=== PATIENT | female | born 1985 | race Caucasian/White ===

== ENCOUNTER 2022-07-08 10:30 | Outpatient (RCR) | payer OTHER, BC, SELFPAY ==
[2022-07-07 08:16] VITALS: BMI 30.1
== END 2022-07-14 12:30 | disposition home or self-care (01) ==
LOC: ANHDMC 10:30
PROVIDERS: Visit Provider Obstetrics & Gynecology
DX: O24.319 Unspecified pre-existing diabetes mellitus in pregnancy, unspecified trimester (principal); Z3A.00 Weeks of gestation of pregnancy not specified; Z71.3 Dietary counseling and surveillance; Z71.89 Other specified counseling
CPT/HCPCS: 97802; G0108

== ENCOUNTER 2022-09-10 21:29 | Observation (INO) | payer OTHER, BC, SELFPAY ==
[2022-09-10 23:08] VITALS: BMI 28.5
--- NOTE | 2022-09-10 23:08 | OBADM ---
This patient, Brenda Jason, admitted to the OB room Labor/Delivery/Recovery 106 for observation. Patient/family oriented to hospital policies and general routines including ID bracelet, bed and alarms, visiting hours, pain management, procedures, bathroom and other care routines, personal items, smoking policy, room service/diet, and visiting hours. Patient/Family are encouraged to report perceived risks to care and to ask questions if they do not understand what they are told or what they should do.
--- NOTE | 2022-09-15 21:47 | PM.OBTRLD ---
OB - Triage/Final Diagnosis Visit Information Reason for evaluation: threatened labor Comments/Additional reasons for admission: I have assessed the risk for this patient, Brenda Jaz Jason, and determined that she would benefit from observation care.
== END 2022-09-10 23:25 | disposition home or self-care (01) ==
PROVIDERS: Admitting Provider Obstetrics & Gynecology; Visit Provider Obstetrics & Gynecology
DX: O47.1 False labor at or after 37 completed weeks of gestation (principal); Z3A.39 39 weeks gestation of pregnancy
CPT/HCPCS: G0378; G0379

== ENCOUNTER 2022-09-11 14:33 | Inpatient (IN) | payer OTHER, BC, SELFPAY ==
[2022-09-11] VITALS (104 sets, daily range): BP systolic 104–150; BP diastolic 49–88; PULSE 64–117; RESP 16–18; TEMP 37.2–37.6; O2SAT 95–100; BMI 28.7
[2022-09-11 15:40] LABS: Glucose Point of Care 86 mg/dl (65-105)
--- NOTE | 2022-09-11 15:52 | LDADM ---
This patient, Brenda Jason, was admitted to Labor/Delivery/Recovery 106 on 09/11/22 at 14:33. Plans for labor, pain management and were discussed with patient. Patient/family oriented to hospital policies and general routines including ID bracelet, bed and alarms, visiting hours, pain management, procedures, bathroom and other care routines, personal items, smoking policy, room service/diet and guest tray routines, infant security routines, and visiting hours. Patient/Family are encouraged to report perceived risks to care and to ask questions if they do not understand what they are told or what they should do. See OBIX for further documentation.
[2022-09-11 15:58] LABS: Basophils Percent Auto 0.2 % (0.2-1.2); Hematocrit 35.8 % (37.0-47.0); Hemoglobin 11.2 g/dL (12.0-15.0); Immature Granulocyte Absolute 0.04 K/mm3 (0.00-0.031); Immature Granulocyte Percent A 0.3 % (0-0.5); Immature Platelet Fraction Pct 17.1 % (0.9-11.2); Lymphocytes Absolute Auto 1.93 K/mm3 (0.9-3.2); Lymphocytes Percent Auto 15.5 % (18.3-44.2); Mean Corpuscular HGB Conc 31.3 g/dl (32-36); Mean Corpuscular Hemoglobin 23.9 pg (26-34); Mean Corpuscular Volume 76.5 fl (80-100); Monocytes Percent Auto 7.7 % (2.6-8.5); Neutrophils Absolute Auto 9.5 K/mm3 (1.3-6.7); Neutrophils Percent Auto 76.3 % (45.5-73.1); Platelet Count Result 263 k/mm3 (150-375); Red Blood Count 4.68 M/mm3 (4.2-5.4); Red Cell Distribution Width 17.5 % (11.5-14.5); White Blood Count 12.5 K/mm3 (4.5-10.0)
--- NOTE | 2022-09-11 17:11 | PM.IMHP ---
H&P: HPI History of Present Illness Date/Time: 09/11/22 17:11 Chief Complaint: labor at term Narrative: this is a 37-year-old 1 para 0 whose last menstrual period was 12/07/2021, whose EDC is 09/14/2022 confirmed by IVF who presents with ruptured membranes at 39+ weeks gestation. Her has been complicated by gestational diabetes with an abnormal 1hour 2/4 abnormal 1hour 3hour. She states however her sugars have been well controlled by diet along. The fluid is apparently somewhat meconium stained. But she is negative for group B strep PMFSH Family History Family History Grandparent Cerebrovascular accident Social History Social History Smoking status: Never smoker Substance use: never Lack of Transportation: No Lack of Food: Never True Current Housing: I Have Housing Concerned About Future Housing: No Difficulty Paying Gas/Electric Bills: No Difficulty Paying for Meds: No Currently Unemployed: No Education: Bachelor's Degree Difficulty w/ Childcare or Family Care: No Spiritual care concerns: No Meds Home Medications and Allergies Home Medications Medication Instructions Recorded Confirmed Type aspirin 81 mg tablet 81 mg PO DAILY 07/22/22 09/11/22 History vits no.126-ferrous fum 1 tablet PO DAILY 07/22/22 09/11/22 History 28 mg iron-folic acid 800 mcg tablet (Classic ) cholecalciferol (vitamin D3) 100 100 mcg PO DAILY 08/16/22 08/16/22 History mcg (4,000 unit) tablet Allergies Allergy/AdvReac Type Severity Reaction Status Date / Time No Known Allergies Allergy Verified 07/22/22 12:26 Vital Signs Vital Signs - 24 hr 09/11/22 15:15 09/11/22 13:30 09/11/22 15:30 Temperature 99.4 F 99.4 F Pulse Rate 89 Blood Pressure 123/88 Oxygen Delivery 09/11/22 16:51 09/11/22 15:48 Temperature Pulse Rate 83 Blood Pressure 130/76 Oxygen Delivery Room Air Exam Const: General: cooperative, healthy appearing and comfortable Nutritional Appearance: average body habitus Orientation/consciousness: oriented to person, oriented to place and oriented to time HENMT: Head: normal to inspection Resp: Effort & Inspection: normal respiratory effort Cardio: Rate: regular rate Rhythm: regular rhythm Heart sounds: S1 normal heart sound present and S2 normal heart sound present GI: Inspection: normal to inspection ( gravid uterus) : External Female Exam: normal external appearance Speculum Exam - Vagina: normal appearance of the vagina Speculum Exam - Cervix: normal appearance of the cervix ( cervix 3.5cm. Meconium-stained fluid seen. FHTs reassuring.) H&P: Results Labs Labs: Short CBC 09/11/22 Range/Units 15:33 WBC 12.5 H (4.5-10.0) K/mm3 Hgb 11.2 L (12.0-15.0) g/dL Hct 35.8 L (37.0-47.0) % Plt Count 263 (150-375) k/mm3 Assessment and Plan Assessment and plan (1) Term : Code(s): Z34.90 - Encounter for supervision of normal , unspecified, unspecified trimester Status: Acute (2) Spontaneous rupture of membranes: Status: Acute Plan spontaneous vaginal delivery is anticipated. She is an epidural candidate. Her sugars have remained normal here
[2022-09-11] MEDS: LACTATED RINGERS 1,000 ML 125 ML IV CONT (18:09)
--- NOTE | 2022-09-11 18:42 | WPDANESEPP ---
Anes - Eval Pre Procedure Procedure: Labor epidural Date/Time: 09/11/22 18:42 Surgeon: Lucio Hugo Preop Diagnosis: Abdominal pain with contractions Pre Op Diagnosis: Leaking Patient Data Age: 37 Gender: F Height: 1.6 m Weight: 73.5 kg Last Vital Signs Temp 99.6 F 09/11/22 17:00 Pulse 73 09/11/22 18:30 BP 131/88 09/11/22 18:30 O2 Del Method Room Air 09/11/22 15:48 Allergies Allergy/AdvReac Type Severity Reaction Status Date / Time No Known Allergies Allergy Verified 07/22/22 12:26 Home Medications Medication Instructions Recorded Confirmed Type aspirin 81 mg tablet 81 mg PO DAILY 07/22/22 09/11/22 History vits no.126-ferrous fum 1 tablet PO DAILY 07/22/22 09/11/22 History 28 mg iron-folic acid 800 mcg tablet (Classic ) cholecalciferol (vitamin D3) 100 100 mcg PO DAILY 08/16/22 08/16/22 History mcg (4,000 unit) tablet Laboratory Tests 09/11/22 09/11/22 15:32 15:33 WBC 12.5 H K/mm3 (4.5-10.0) RBC 4.68 M/mm3 (4.2-5.4) Hgb 11.2 L g/dL (12.0-15.0) Hct 35.8 L % (37.0-47.0) MCV 76.5 L fl (80-100) MCH 23.9 L pg (26-34) MCHC 31.3 L g/dl (32-36) RDW 17.5 H % (11.5-14.5) Plt Count 263 k/mm3 (150-375) MPV TNP Immature Gran % (Auto) 0.3 % (0-0.5) Neut % (Auto) 76.3 H % (45.5-73.1) Lymph % (Auto) 15.5 L % (18.3-44.2) [place] % (Auto) 7.7 % (2.6-8.5) Eos % (Auto) 0.0 % (0-4.4) Baso % (Auto) 0.2 % (0.2-1.2) Lymph # (Auto) 1.93 K/mm3 (0.9-3.2) [place] # (Auto) 1.0 H K/mm3 (0.1-0.6) Eos # (Auto) 0.0 K/mm3 (0-0.3) Baso # (Auto) 0.0 K/mm3 (0.0-0.1) Abs Immat Gran (auto) 0.04 H K/mm3 (0.00-0.031) Absolute Neuts (auto) 9.5 H K/mm3 (1.3-6.7) Absolute Nucleated RBC 0.0 K/mm3 (0.0-0.012) Nucleated RBC % 0.0 % (0.0-0.2) % Immature Plt Fraction 17.1 H % (0.9-11.2) POC Capillary Glucose 86 mg/dl (65-105) RPR Pending Blood Type A Positive Antibody Screen Negative : gestational age HCG: positive Patient hx anesthesia problems: none Family hx anesthesia problems: none Results Review: All pre-operative results and documents have been reviewed as part of the pre-operative evaluation. [facility] Past Medical History Medical History Gestational diabetes Overweight (BMI 25.0-29.9) Term Family History Family History Grandparent Cerebrovascular accident Social History Social History Smoking status: Never smoker Substance use: never Lack of Transportation: No Lack of Food: Never True Current Housing: I Have Housing Concerned About Future Housing: No Difficulty Paying Gas/Electric Bills: No Difficulty Paying for Meds: No Currently Unemployed: No Education: Bachelor's Degree Difficulty w/ Childcare or Family Care: No Spiritual care concerns: No Exam Day of Procedure 09/11/22 18:42 Patient weight: overweight Airway: Mallampati scale class II
[2022-09-11 19:15] LABS: Glucose Point of Care 98 mg/dl (65-105)
[2022-09-11 21:59] LABS: Glucose Point of Care 84 mg/dl (65-105)
[2022-09-11] MEDS: ONDANSETRON INJ 4 MG/2 ML VIAL IV PUSH (23:37)
[2022-09-12] VITALS (200 sets, daily range): BP systolic 86–153; BP diastolic 47–119; PULSE 74–162; RESP 15–18; TEMP 36.8–38.3; O2SAT 93–100
[2022-09-12 00:43] LABS: Glucose Point of Care 91 mg/dl (65-105)
[2022-09-12] MEDS: LACTATED RINGERS 1,000 ML 125 ML IV CONT ×3 (01:14→06:22)
[2022-09-12] MEDS: FAMOTIDINE 20 MG/2 ML VIAL IV PUSH (01:21)
[2022-09-12] MEDS: AMPICILLIN 2 GM/NS 100 ML 2 GM/100 ML BAG IVPB (01:24)
[2022-09-12] MEDS: ACETAMINOPHEN 500 MG TABLET 1000 MG PO (01:25)
[2022-09-12] MEDS: GENTAMICIN SULFATE INJ 305 MG in DEXTROSE 5% 100 ML 107.63 MG IVPB (02:07)
[2022-09-12] MEDS: OXYTOCIN 30 UNITS/NS 500 ML 30 UNITS/500 ML BAG IV CONT (02:42)
[2022-09-12 03:08] LABS: Glucose Point of Care 122 mg/dl (65-105)
[2022-09-12 04:21] LABS: Glucose Point of Care 110 mg/dl (65-105)
[2022-09-12] MEDS: AMPICILLIN 1 GM/NS 50 ML 1 GM/50 ML BAG IVPB ×2 (05:14→08:42)
[2022-09-12 05:37] LABS: Rapid Plasma Reagin Non-Reactive (NonReactive)
--- NOTE | 2022-09-12 06:07 | PM.OBPNLAB ---
Pain Control Date/time seen: 09/12/22 06:07 Pain control: tolerating well and epidural Pelvic Exam Dilation (cm): 7 station: -1
[2022-09-12 06:27] LABS: Glucose Point of Care 107 mg/dl (65-105)
[2022-09-12 08:32] LABS: Glucose Point of Care 116 mg/dl (65-105)
--- NOTE | 2022-09-12 08:43 | PM.OBPNLAB ---
Pain Control Date/time seen: 09/12/22 08:43 Comments: Feeling pressure. Afebrile. AVSS Pelvic Exam Dilation (cm): 10 station: +2 Contractions Contraction frequency: 2 Contraction pattern: Regular Status status: Category l Assessment and Plan Comments: A: IUP at term with SROM, meconium. Well-controlled A1DM. Good glycemic control during labor. Fever x 1 overnight, but afebrile since. P: Begin pushing. Anticipate .
--- NOTE | 2022-09-12 10:54 | P.PCNOB_ITS ---
OB - Delivery Note Procedure Delivery date: 09/12/22 Procedure: Events: Gestational Diabetes Induction method: None Delivery augmentation: Pitocin Delivery monitor: External FHT and External Uterine Route of delivery: Laceration Description: Perineal - 2nd Degree Delivery repair: vicryl (3-0) Specimen: Yes (Cord blood, placenta) Quantitative Blood Loss (ml): 180 Anesthesia type: Epidural Disposition: PACU Complications: None Narrative: 37 y/o G1 at 39 5/7 weeks gestation who presented to the hospital after a gush of fluid. SROM was diagnosed, with thickly meconium-stained fluid. Well- controlled A1DM, with normal blood glucose readings throughout labor. Oxytocin was administered intravenously for labor augmentation. She received an epidural for pain control. She had a temp of 101F which was treated with ampicillin and gentamicin. She defervesced and had no more fevers. Her labor progressed and her cervix dilated completely. She pushed with good effort and delivered the infant's head to the perineum, followed by the body. The nose and mouth were bulb suctioned and the infant was handed off the field. Cord blood was collected. The placenta delivered spontaneously and was grossly normal in appearance. The usual 3 vessel cord was noted. A second degree midline perineal laceration was sustained. This was reapproximated using 3 0 Vicryl in the usual layered fashion. Excellent hemostasis resulted as did excellent reapproximation of the normal anatomy. Needle and instrument counts were correct. The patient was taken to recovery room in stable condition. The went to the nursery in stable condition. I was present and scrubbed for the entire delivery. Reading Baby Date of : 09/12/22 Time of : 10:55 Weeks of gestation at delivery: 39 gender: Male Weight (pounds): 6 Weight (ounces): 10 presentation: vertex position: Right Occiput Anterior Placenta delivery description: Spontaneous and Normal Configuration Cord Vessel Description: 3 Vessels score one minute: 8 score five minutes: 9
--- NOTE | 2022-09-12 10:58 | PM.OBDSVD ---
DS: Admitting Diagnosis Discharge Date 09/14/22 Admitting Diagnosis IUP at 39 5/7 weeks SROM A1DM DS: Discharge Diagnosis Discharge Diagnosis (1) Spontaneous rupture of membranes: Status: Acute (2) Term : Code(s): Z34.90 - Encounter for supervision of normal , unspecified, unspecified trimester Status: Acute (3) Gestational diabetes: Code(s): O24.419 - Gestational diabetes mellitus in , unspecified control Status: Acute (4) Intrapartum fever, delivered: Code(s): O75.2 - Pyrexia during labor, not elsewhere classified Status: Acute OB - DS: Summary OB Procedures : None OB Procedures Intrapartum: Spontaneous Vag Delivery OB Procedures: : None Time Spent with Patient Time attestation: Total time spent providing and/or coordinating discharge services: DS: Data Data Completed and Pending Labs on day of discharge: Labs from last 24 hours 09/12/22 09/12/22 09/12/22 08:27 06:20 04:17 WBC RBC Hgb Hct MCV MCH MCHC RDW Plt Count MPV Immature Gran % (Auto) Neut % (Auto) Lymph % (Auto) [place] % (Auto) Eos % (Auto) Baso % (Auto) Lymph # (Auto) [place] # (Auto) Eos # (Auto) Baso # (Auto) Abs Immat Gran (auto) Absolute Neuts (auto) Absolute Nucleated RBC Nucleated RBC % % Immature Plt Fraction POC Capillary Glucose 116 H 107 H 110 H RPR Blood Type Antibody Screen 09/12/22 09/12/22 09/11/22 02:40 00:40 21:55 WBC RBC Hgb Hct MCV MCH MCHC RDW Plt Count MPV Immature Gran % (Auto) Neut % (Auto) Lymph % (Auto) [place] % (Auto) Eos % (Auto) Baso % (Auto) Lymph # (Auto) [place] # (Auto) Eos # (Auto) Baso # (Auto) Abs Immat Gran (auto) Absolute Neuts (auto) Absolute Nucleated RBC Nucleated RBC % % Immature Plt Fraction POC Capillary Glucose 122 H 91 84 RPR Blood Type Antibody Screen 09/11/22 09/11/22 09/11/22 19:10 15:33 15:32 WBC 12.5 H RBC 4.68 Hgb 11.2 L Hct 35.8 L MCV 76.5 L MCH 23.9 L MCHC 31.3 L RDW 17.5 H Plt Count 263 MPV TNP Immature Gran % (Auto) 0.3 Neut % (Auto) 76.3 H Lymph % (Auto) 15.5 L [place] % (Auto) 7.7 Eos % (Auto) 0.0 Baso % (Auto) 0.2 Lymph # (Auto) 1.93 [place] # (Auto) 1.0 H Eos # (Auto) 0.0 Baso # (Auto) 0.0 Abs Immat Gran (auto) 0.04 H Absolute Neuts (auto) 9.5 H Absolute Nucleated RBC 0.0 Nucleated RBC % 0.0 % Immature Plt Fraction 17.1 H POC Capillary Glucose 98 86 RPR Non-reactive Blood Type A Positive Antibody Screen Negative Discharge Plan Discharge Attending physician on discharge: Rodolfo Pedersen Discharging Clinician: Rodolfo Pedersen Patient Disposition: Home, Self-Care Activity: pelvic rest Diet: regular Discharge Instructions: Call or return if temperature above 100.4? F, increased abdominal pain, increased vaginal bleeding or any new problems. Stand Alone Forms: General Discharge Information Follow-up/Referrals: Rodolfo Pedersen MD [Physician] - 6 Weeks Discharge Medications: New ibuprofen 600 mg tablet 600 mg PO Q6H PRN (Reason: cramps) Qty: 30 0RF ferrous sulfate 325 mg (65 mg iron) tablet 325 mg PO DAILY Qty: 30 0RF Continued Classic 28 mg iron- 800 mcg Tablet 1 tablet PO DAILY cholecalciferol (vitamin D3) 100 mcg (4,000 unit) Tablet 100 mcg PO DAILY Discontinued aspirin 81 mg Tablet 81 mg PO DAILY Date of admission: 09/11/22 14:33 Primary Care Provider: UNKNOWN,DOCTOR Admitting Provider: Rodolfo Pedersen Attending physician on admission: Rodolfo Pedersen Condition: Stable
[2022-09-12] MEDS: OXYTOCIN 30 UNITS/NS 500 ML 30 UNITS/500 ML BAG 125 UNITS IV CONT (10:59)
[2022-09-12] MEDS: WITCH HAZEL 40 PADS 1 PAD TOPICAL (12:49)
[2022-09-12] MEDS: BENZOCAINE 20% AER SPR (*SP) 56 GM CAN 1 SPRAY TOPICAL (12:49)
--- NOTE | 2022-09-12 13:16 | PC.NURSE ---
Patient transferred to post room #284 via wheelchair. Support person present. Oriented to unit, room, information board, rooming in, admission packet and security measures. Patient verbalizes understanding.
[2022-09-13 02:24] VITALS: BP 110/78; PULSE 88; RESP 18; TEMP 36.5; O2SAT 100
[2022-09-13 04:15] LABS: Hematocrit 31.3 % (37.0-47.0); Hemoglobin 9.7 g/dL (12.0-15.0)
--- NOTE | 2022-09-13 07:43 | WPDANLDPN2 ---
Anes-Prog Note L&D Date/Time: 09/13/22 07:43 Comfortable throughout: labor and delivery Neuraxial method: epidural Epidural/Spinal procedure site: clean & non-tender Neuro status: Neuro function grossly intact. Cardiovascular status: normal Respiratory status: normal Airway patency: baseline Mental status: baseline Post-Op hydration status: normal Vital Signs: Last Vital Signs Temp 36.5 C 09/13/22 02:24 Pulse 88 09/13/22 02:24 Resp 18 09/13/22 02:24 BP 110/78 09/13/22 02:24 Pulse Ox 100 09/13/22 02:24 O2 Del Method Room Air 09/13/22 02:24 Pain score (VAS): 03/15 I/O: Intake & Output 09/12/22 09/12/22 09/13/22 15:59 23:59 07:59 Output Total 280 Balance -280 Post-procedural complaints: none Patient feedback: Patient satisfied with anesthetic care.
[2022-09-13 08:45] VITALS: BP 116/71; PULSE 88; RESP 16; TEMP 37.7; O2SAT 97
[2022-09-13] MEDS: MULTIVIT/MIN/PREN/FOL AC/IRON TABLET 1 TAB PO (09:08)
[2022-09-13] MEDS: DOCUSATE SODIUM 100 MG CAPSULE PO ×2 (09:08→16:17)
[2022-09-13] MEDS: POLYSACCHARIDE IRON COMPLEX 150 MG CAPSULE PO ×2 (09:08→16:18)
--- NOTE | 2022-09-13 13:40 | PM.OBPNVD ---
OB - PN: Subj Subjective Date/time seen: 09/13/22 13:40 Narrative: Pain OK. OB - PN: Obj Data Labs 09/13/22 02:17 Labs: Laboratory Results - last 24 hr 09/13/22 02:17 Hgb 9.7 L Hct 31.3 L OB - PN A/P Plan day: 1 Comments: A: PPD#1, doing well. P: Routine care. Exam Psych: Other: AVSS ABD soft, nontender, fundus firm EXT nontender
--- NOTE | 2022-09-13 16:10 | PC.NURSE ---
[id number] Re-introductions were made as this mother has previously taken a class with RN. Reviewed waking, [id number] and stimulating for eating with mother, then after placed on mother feeding cues were visualized and mother latched her infant independently to the right breast using cross cradle positioning deny pain. Mother works well with her infant with encouragement and education. Reviewed education of how to visualize suck/swallow ratios and listen for drinking at the breast. Infant was able to maintain latch without discomfort to mother. Nipple care reviewed with optimal latch and good positioning. Reviewed good handwashing when or touching the breast/nipples to prevent infection. Resources used to facilitate learning were used with the mom and baby guide. Mother voiced understanding of skin to skin, stimulating with massage touch, responsive feedings, hand expressed colostrum, talking to to encourage if it has been 2 -2.5 hours since the start of the last , to call if infant does not latch, or if there is discomfort with . Mother voiced understanding of information, demonstrated learning and will call if there is a request for assistance. Reported to the Primary RN.
[2022-09-13 20:30] VITALS: BP 118/78; PULSE 90; RESP 16; TEMP 36.8; O2SAT 97
[2022-09-14 07:35] VITALS: BP 112/70; PULSE 87; RESP 16; TEMP 37.3; O2SAT 97
--- NOTE | 2022-09-14 08:24 | PC.NURSE ---
Patient viewed the discharge video Mother & Baby Care, The First Two Weeks . Patient was given the opportunity and encouraged to ask questions. Patient verbalized understanding of information shared and has been given the mother/baby guide for home reference.
--- NOTE | 2022-09-14 09:08 | PM.OBPNVD ---
OB - PN: Subj Subjective Date/time seen: 09/14/22 09:08 Narrative: Pain OK. Would like to go home. OB - PN: Obj Data Labs 09/13/22 02:17 OB - PN A/P Plan Comments: A: PPD#2, doing well. P: Home to f/u 6 weeks. Exam Psych: Other: AVSS ABD soft, nontender, fundus firm EXT nontender
[2022-09-14] MEDS: POLYSACCHARIDE IRON COMPLEX 150 MG CAPSULE PO (09:51)
[2022-09-14] MEDS: MULTIVIT/MIN/PREN/FOL AC/IRON TABLET 1 TAB PO (09:51)
[2022-09-14] MEDS: DOCUSATE SODIUM 100 MG CAPSULE PO (09:52)
[2022-09-15 11:30] VITALS: BP 122/79; PULSE 88; RESP 20; O2SAT 100
== END 2022-09-14 11:40 | disposition home or self-care (01) | DRG 806 ==
LOC: ANHLDR 09-12 11:01 → ANHOB2 09-12 13:29
PROVIDERS: Admitting Provider Obstetrics & Gynecology; Visit Provider Obstetrics & Gynecology
DX: O42.02 Full-term premature rupture of membranes, onset of labor within 24 hours of rupture (principal); O75.2 Pyrexia during labor, not elsewhere classified; Z37.0 Single live birth; Z3A.39 39 weeks gestation of pregnancy; O70.1 Second degree perineal laceration during delivery; O77.0 Labor and delivery complicated by meconium in amniotic fluid; O24.429 Gestational diabetes mellitus in childbirth, unspecified control
CPT/HCPCS: 36415; 82948; 85014; 85018; 85025; 85055; 86592; 86850; 86900; 86901; 88307; A9270; G0378; G0379; J0290; J1580; J2405; J2590; J2795; J7120

== ENCOUNTER 2022-09-12 10:00 | Outpatient (RCR) | payer OTHER, BC, SELFPAY ==
[2022-07-22 12:17] VITALS: BP 106/70; PULSE 82
[2022-07-29 12:15] VITALS: BP 111/68; PULSE 93
[2022-08-05 12:21] VITALS: BP 110/71; PULSE 90
[2022-08-12 10:45] VITALS: BP 110/71; PULSE 90
[2022-08-19 11:13] VITALS: BP 117/78; PULSE 75
[2022-08-26 11:03] VITALS: BP 116/72; PULSE 80
[2022-09-01 09:32] VITALS: BP 108/75; PULSE 80
[2022-09-07 11:52] VITALS: BP 117/81; PULSE 83
== END 2022-10-17 13:09 | disposition home or self-care (01) ==
LOC: ANHOBOP 10:00
PROVIDERS: Visit Provider Obstetrics & Gynecology
DX: O24.419 Gestational diabetes mellitus in pregnancy, unspecified control (principal); Z3A.32 32 weeks gestation of pregnancy
CPT/HCPCS: 59025

== ENCOUNTER 2024-07-05 12:47 | Outpatient (RCR) | payer OTHER, BC, SELFPAY | END 2024-09-23 11:06 | disposition home or self-care (01) | LOC: ANHDMC 12:47 | PROVIDERS: Visit Provider Obstetrics & Gynecology | DX: O24.319 Unspecified pre-existing diabetes mellitus in pregnancy, unspecified trimester (principal); Z3A.00 Weeks of gestation of pregnancy not specified; Z71.89 Other specified counseling | CPT/HCPCS: G0108 ==

== ENCOUNTER 2024-09-10 07:32 | Outpatient (RCR) | payer OTHER, BC, SELFPAY ==
[2024-08-08 09:16] VITALS: BP 109/66; PULSE 95
[2024-08-14 07:58] VITALS: BP 106/71
[2024-08-21 11:56] VITALS: BP 102/72; PULSE 97
[2024-08-28 08:00] VITALS: BP 112/71; PULSE 84
[2024-09-04 08:03] VITALS: BP 100/68; PULSE 78
[2024-09-10 08:13] VITALS: BP 101/65; PULSE 80
== END 2024-09-21 16:08 | disposition home or self-care (01) ==
LOC: ANHOBOP 07:32
PROVIDERS: Visit Provider Obstetrics & Gynecology
DX: O24.419 Gestational diabetes mellitus in pregnancy, unspecified control (principal); Z3A.33 33 weeks gestation of pregnancy; Z3A.34 34 weeks gestation of pregnancy; Z3A.35 35 weeks gestation of pregnancy; Z3A.36 36 weeks gestation of pregnancy; Z3A.37 37 weeks gestation of pregnancy
CPT/HCPCS: 59025

== ENCOUNTER 2024-09-14 10:35 | Inpatient (IN) | payer OTHER, BC, SELFPAY ==
[2024-09-14] VITALS (14 sets, daily range): BP systolic 95–136; BP diastolic 53–79; PULSE 76–99; RESP 16–18; TEMP 36.7–37.6; O2SAT 95–100; BMI 28.9
[2024-09-14 11:13] LABS: Hematocrit 38.1 % (37.0-47.0); Hemoglobin 12.1 g/dL (12.0-15.0); Immature Granulocyte Percent A 0.4 % (0-0.5); Lymphocytes Absolute Auto 1.16 K/mm3 (0.9-3.2); Mean Corpuscular HGB Conc 31.8 g/dl (32-36); Mean Corpuscular Hemoglobin 26.0 pg (26-34); Mean Corpuscular Volume 81.9 fl (80-100); Nucleated Red Blood Cells Absolute Auto 0.000 K/mm3 (0.0-0.012); Nucleated Red Blood Cells Perc 0.0 % (0.0-0.2); Platelet Count Result 223 k/mm3 (150-375); Red Blood Count 4.65 M/mm3 (4.2-5.4); White Blood Count 10.0 K/mm3 (4.5-10.0)
--- NOTE | 2024-09-14 11:15 | P.HP_ITS ---
H&P: HPI History of Present Illness Date/Time: 09/14/24 11:15 Chief Complaint: contractions Narrative: Brenda is a 39yo @ 38.3wks who began having contractions since midnight; became stronger at 0930. She arrived on L&D and was found to be 5/90/-2 and then had SROM of fluids at 1115. She denies vaginal bleeding. Her is complicated by: - AMA - A1GDM - GBS positive Review of Systems Constitutional: Constitutional: Denies chills, Denies fever(s) and Denies headache(s) Eyes: Eyes: Denies change in vision ENT: Denies headache(s) Cardiovascular: Cardiovascular: Denies chest pain and Denies dyspnea Respiratory: Respiratory: Denies dyspnea Genitourinary: Genitourinary: Denies abnormal vaginal bleeding and Denies vaginal discharge Neurologic: Denies headache(s) Psychiatric: Psychiatric: Denies anxiety and Denies depression [facility] Past Medical History Medical History Gestational diabetes Overweight (BMI 25.0-29.9) Term Family History Family History Grandparent Cerebrovascular accident Social History Social History Smoking status: Never smoker Substance use: never Lack of Transportation: No Lack of Food: Never True Current Housing: I Have Housing Concerned About Future Housing: No Difficulty Paying Gas/Electric Bills: No Difficulty Paying for Meds: No Currently Unemployed: No Education: Bachelor's Degree Difficulty w/ Childcare or Family Care: No Spiritual care concerns: No Meds Home Medications and Allergies Home Medications ?Medication ?Instructions ?Recorded ?Confirmed ?Type vits no.126-ferrous fum 1 tablet PO DAILY 07/22/22 09/10/24 History 28 mg iron-folic acid 800 mcg tablet (Classic ) Allergies Allergy/AdvReac Type Severity Reaction Status Date / Time No Known Allergies Allergy Verified 09/10/24 14:40 Vital Signs Vital Signs - 24 hr 09/14/24 11:00 09/14/24 11:15 Pulse Rate 89 78 Blood Pressure 112/71 136/79 Exam Const: General: cooperative, healthy appearing and no acute distress Orientation/consciousness: patient oriented x3 Resp: Effort & Inspection: normal respiratory effort Cardio: Rate: regular rate GI: GI Palp: No abdominal tenderness : Other: FHT's: 130's/ mod romeo/ + accels/ no decels - cat 1 TOCO: ctxs q_min Cervix: 5/90/-2 Membranes: SROM 1115 Presentation: cephalic Skin: General skin exam: normal color Neuro: General: patient oriented x3 Extrem: General: normal to inspection Psych: Appearance: grossly normal Affect: normal affect Attitude: cooperative Assessment and Plan Assessment and plan (1) Active labor at term: Status: Acute (2) Spontaneous rupture of membranes: Status: Acute Plan - Admitted in active labor - low dose pitocin if contractions space out - Continuous monitoring - GBS positive: ampicillin - Anesthesia consult PRN pain
[2024-09-14] MEDS: AMPICILLIN SODIUM 2 GM in SODIUM CHLORIDE 0.9% IV 100 ML 200 ML IVPB (11:24)
[2024-09-14] MEDS: LACTATED RINGERS 1,000 ML 125 ML IV CONT (11:24)
[2024-09-14 12:05] LABS: Syphilis IgG/IgM Antibody Non-Reactive (Nonreactive)
[2024-09-14] MEDS: OXYTOCIN 30 UNITS/NS 500 ML 30 UNITS/500 ML BAG 999 UNITS IV CONT (12:09)
--- NOTE | 2024-09-14 12:22 | LDADM ---
This patient, Brenda Jason, was admitted to Labor/Delivery/Recovery 106 on 09/14/24 at 10:35. Plans for labor, pain management and were discussed with patient. Patient/family oriented to hospital policies and general routines including ID bracelet, bed and alarms, visiting hours, pain management, procedures, bathroom and other care routines, personal items, smoking policy, room service/diet and guest tray routines, infant security routines, and visiting hours. Patient/Family are encouraged to report perceived risks to care and to ask questions if they do not understand what they are told or what they should do. See OBIX for further documentation.
--- NOTE | 2024-09-14 12:31 | PM.OBPRVD ---
OB - Vaginal Delivery Note Procedure Delivery date: 09/14/24 Events: Gestational Diabetes (A1) and Positive Group B Strep (GBS) Delivery monitor: External FHT and External Uterine Route of delivery: Episiotomy description: None Laceration Description: Perineal - 2nd Degree Delivery repair: vicryl Specimen: Yes (placenta) Quantitative Blood Loss (ml): 300 Anesthesia type: Local (20cc of 1% lidocaine w/o epi) Disposition: Floor Complications: No immediate complications [place] Baby Date of : 09/14/24 Time of : 12:06 Gestational Age by Date: 38 (.3) Infant gender: Female presentation: vertex position: Right Occiput Anterior Placenta delivery description: Expressed Cord Vessel Description: 3 Vessels and Delayed Cord Clamping score one minute: 8 score five minutes: 9 Narrative: Brenda presented in active labor and shortly after I will had spontaneous rupture membranes and was then found to be 8 cm. She rapidly progressed to complete dilation with strong desire to push. She pushed for approximately 15 minutes with good maternal effort. She delivered the head over intact perineum. No nuchal cord was palpated. She easily delivered the 's shoulders and body without complication. Delayed cord clamping was performed. The umbilical cord was then doubly clamped and was cut by dad. A segment of the cord was collected for cord gases. The remaining cord blood was collected for typing. With Pitocin running, and gentle downward traction on the cord, the placenta delivered without complication. Brisk bleeding was noted therefore bimanual massage was performed and good uterine tone with minimal bleeding was then noted. She declined pain medications. She was examined and a second-degree perineal laceration was noted (her old scar site/ laceration from her 1st delivery). She was anesthetized with 2% lidocaine without epinephrine. The laceration was then repaired the normal fashion using 2-0 Vicryl. Good reapproximation and minimal bleeding was then noted. Bleeding was then again noted and bimanual massage was performed and a small clot was then evacuated and minimal bleeding was then noted. Sponge, lap, instrument, and needle counts were correct at the end the procedure. Mom and baby were left bonding in the birthing suite in stable condition.
[2024-09-14] MEDS: LIDOCAINE 1% LOCAL INJ 20 ML VIAL (12:43)
[2024-09-14] MEDS: WITCH HAZEL 40 PADS 1 PAD TOPICAL (12:59)
[2024-09-14] MEDS: BENZOCAINE 20% AER SPR (*SP) 56 GM CAN 1 SPRAY TOPICAL (12:59)
[2024-09-14] MEDS: IBUPROFEN 600 MG TABLET PO (13:00)
[2024-09-14 13:51] LABS: HIV 1/2 Ab P24 Ag Result Negative (Negative)
--- NOTE | 2024-09-14 14:43 | S_PTH ---
PATIENT: Bernda Jason LOC: [id number] U#:[id number] AGE/SX: 39/F ROOM: 291 RE09/14/[address]: Rodolfo Pedersen MD : 1985 BED: 00 DIS: 09/16/2024 SPEC #: [id number] RECD: 09/16/24 08:20 STATUS: SHELBI REQ #: [id number] CHUCKIE: 09/14/24 14:[address]: Bita Son DEPT: [facility] Surgical RECD BY: Gill Blake ENTERED: 09/16/24 08:20 SP TYPE: Surgical OTHR DR: Rodolfo Pedersen MD UNKNOWN,DOCTOR Tissues: A - Placenta Procedures: Hematoxylin and Eosin Stain Gross and Microscopic Level 5
--- NOTE | 2024-09-14 15:46 | OBPPTRN ---
Patient transferred to post room #291 via wheelchair. Support person present. Oriented to unit, room, information board, rooming in, admission packet and security measures. Patient verbalizes understanding.
[2024-09-15 04:20] VITALS: BP 109/71; PULSE 75; RESP 18; TEMP 36.5; O2SAT 99
[2024-09-15 05:02] LABS: Hematocrit 33.3 % (37.0-47.0); Hemoglobin 10.7 g/dL (12.0-15.0); Mean Corpuscular HGB Conc 32.1 g/dl (32-36); Mean Corpuscular Hemoglobin 26.8 pg (26-34); Mean Corpuscular Volume 83.3 fl (80-100); Platelet Count Result 190 k/mm3 (150-375); Red Blood Count 4.00 M/mm3 (4.2-5.4); White Blood Count 13.7 K/mm3 (4.5-10.0)
--- NOTE | 2024-09-15 08:16 | P.PNOB_ITS ---
OB - PN: Subj Subjective Date/time seen: 09/15/24 08:16 Narrative: PPD#1 Brenda reports doing well today. Her bleeding is slate splitting supervisor. Her pain is controlled. She is tolerating regular diet, voiding, passing gas, and ambulating without issues. She is breast feeding. OB - PN: Obj Data Labs 09/15/24 04:24 Labs: Laboratory Results - last 24 hr 09/14/24 09/15/24 11:07 04:24 WBC 10.0 13.7 H RBC 4.65 4.00 L Hgb 12.1 10.7 L Hct 38.1 33.3 L MCV 81.9 83.3 MCH 26.0 26.8 MCHC 31.8 L 32.1 RDW 15.9 H 15.9 H Plt Count 223 190 MPV 12.7 H 12.9 H Immature Gran % (Auto) 0.4 Neut % (Auto) 85.3 H Lymph % (Auto) 11.6 L [place] % (Auto) 2.4 L Eos % (Auto) 0.0 Baso % (Auto) 0.3 Lymph # (Auto) 1.16 [place] # (Auto) 0.2 Eos # (Auto) 0.0 Baso # (Auto) 0.0 Abs Immat Gran (auto) 0.04 H Absolute Neuts (auto) 8.6 H Absolute Nucleated RBC 0.000 Nucleated RBC % 0.0 Syphilis IgG/IgM Ab Non-reactive HIV 1&2 Ab/P24 Ag 4thGn Negative Blood Type A Positive Antibody Screen Negative OB - PN A/P Assessment and Plan (1) Normal vaginal delivery of second : Code(s): O80 - Encounter for full-term uncomplicated delivery Status: Acute (2) GBS carrier: Code(s): Z22.330 - Carrier of Group B streptococcus Status: Acute Plan day: 1 Plan: routine care Comments: - PO pain meds - Regular diet - Ambulation and hydration encouraged - Continue putting baby to breast q2-3hr - Pedi wants to keep baby due to inadequately treated GBS Time Spent With Patient Time: Total time spent is greater than 50% in coordination of care (as documented) at patient's floor/unit and/or counseling patient: Review of Systems 2 Constitutional: Constitutional: Denies chills, Denies fever(s) and Denies headache(s) Eyes: Eyes: Denies change in vision ENT: Denies dizziness and Denies headache(s) Cardiovascular: Cardiovascular: Denies chest pain, Denies palpitations and Denies dyspnea Respiratory: Respiratory: Denies cough and Denies dyspnea Gastrointestinal: Gastrointestinal: Denies nausea and Denies vomiting Neurologic: Denies dizziness and Denies headache(s) Endocrine: Endocrine: Denies palpitations Exam 2 Const: General: cooperative, healthy appearing, comfortable and no acute distress Orientation/consciousness: patient oriented x3 Resp: Effort & Inspection: normal respiratory effort Auscultation: clear to auscultation bilaterally Cardio: Rate: regular rate GI: Inspection: non-distended GI Palp: No abdominal tenderness and Yes Soft to palpation Auscultation: normal bowel sounds : Other: fundus firm Skin: General skin exam: normal color Neuro: General: patient oriented x3 Extrem: General: normal to inspection Psych: Appearance: grossly normal Affect: normal affect Attitude: c ooperative
[2024-09-15 09:15] VITALS: BP 106/62; PULSE 80; RESP 16; TEMP 36.9; O2SAT 99
[2024-09-15] MEDS: MULTIVIT/MIN/PREN/FOL AC/IRON TABLET 1 TAB PO (09:15)
[2024-09-15] MEDS: DOCUSATE SODIUM 100 MG CAPSULE PO (09:16)
[2024-09-15 19:50] VITALS: BP 111/67; PULSE 93; RESP 16; TEMP 37.6; O2SAT 97
[2024-09-16 07:25] VITALS: BP 111/77; PULSE 88; RESP 16; TEMP 36.9; O2SAT 98
--- NOTE | 2024-09-16 09:02 | P.PNOB_ITS ---
OB - PN: Subj Subjective Date/time seen: 09/16/24 09:02 Narrative: Pain OK. Would like to go home. OB - PN: Obj Data Labs 09/15/24 04:24 OB - PN A/P Plan day: 2 Comments: A: PPD#2, doing well. P: Home to f/u 6 weeks. Exam 2 Psych: Other: AVSS ABD soft, nontender, fundus firm EXT nontender
--- NOTE | 2024-09-16 09:02 | P.DS_ITS ---
DS: Admitting Diagnosis Discharge Date 09/16/24 Admitting Diagnosis IUP at 38 weeks SROM A1DM GBS colonization DS: Discharge Diagnosis Discharge Diagnosis (1) Normal vaginal delivery of second : Code(s): O80 - Encounter for full-term uncomplicated delivery Status: Acute (2) Gestational diabetes: Qualifiers: Gestational diabetes mellitus control: diet-controlled Trimester: third trimester Qualified Code(s): O24.410 - Gestational diabetes mellitus in , diet controlled Code(s): O24.419 - Gestational diabetes mellitus in , unspecified control Status: Acute (3) GBS (group B Streptococcus carrier), +RV culture, currently : Code(s): O99.820 - Streptococcus B carrier state complicating Status: Acute OB - DS: Summary OB Procedures : NST OB Procedures Intrapartum: Spontaneous Vag Delivery OB Procedures: : None Peripartum Data Laceration Description: Perineal - 2nd Degree Episiotomy description: None Time Spent with Patient Time attestation: Total time spent providing and/or coordinating discharge services: DS: Data Data Completed and Pending Pending studies at discharge: Pending at discharge 09/14/24 14:43 Surgical [PTH] Routine Discharge Plan Discharge Attending physician on discharge: Rodolfo Pedersen Discharging Clinician: Rodolfo Pedersen Patient Disposition: Home Activity: pelvic rest Diet: regular Discharge Instructions: Call or return if temperature above 100.4? F, increased abdominal pain, increased vaginal bleeding or any new problems. Patient Language: [place] Stand Alone Forms: General Discharge Information Follow-up/Referrals: Rodolfo Pedersen MD [Physician] - 6 Weeks Discharge Medications: New ibuprofen 600 mg tablet 600 mg PO Q6H PRN (Reason: cramps) Qty: 30 0RF Continued Classic 28 mg iron- 800 mcg Tablet 1 tablet PO DAILY Date of admission: 09/14/24 10:35 Primary Care Provider: UNKNOWN,DOCTOR Admitting Provider: Rodolfo Pedersen Attending physician on admission: Rodolfo Pedersen Condition: Stable
[2024-09-16] MEDS: DOCUSATE SODIUM 100 MG CAPSULE PO (09:22)
[2024-09-16] MEDS: MULTIVIT/MIN/PREN/FOL AC/IRON TABLET 1 TAB PO (09:22)
--- NOTE | 2024-09-16 09:50 | PC.NURSE ---
Mother verbalizes she is able to independently latch with appropriate positioning and alignment. She denies any nipple discomfort and is responsively . This is her second baby to breastfeed. is currently meeting outcomes for weight, output, jaundice, blood sugar and feeding frequencies of 8-12 times in 24 hours. Mother declines any additional assistance or education at this time. Mother is encouraged to call for assistance if her doesn?t latch, pain with latching, questions or concerns. Mother voiced understanding of information shared along with the mom/baby guide for an additional resource. Reported to the Primary RN.
[2024-09-17 11:11] VITALS: BP 126/77; PULSE 96; RESP 18; TEMP 37.2; O2SAT 100
== END 2024-09-16 12:28 | disposition home or self-care (01) | DRG 807 ==
LOC: ANHLDR 10:54 → ANHOB2 15:58
PROVIDERS: Admitting Provider Obstetrics & Gynecology; Visit Provider Obstetrics & Gynecology
DX: O99.824 Streptococcus B carrier state complicating childbirth (principal); Z37.0 Single live birth; Z3A.38 38 weeks gestation of pregnancy; O70.1 Second degree perineal laceration during delivery; O24.429 Gestational diabetes mellitus in childbirth, unspecified control
CPT/HCPCS: 36415; 85025; 85027; 86593; 86703; 86850; 86900; 86901; 88307; A9270; G0432; J0290; J2003; J2590; J7120

== ENCOUNTER 2024-10-21 12:28 | Outpatient (CLI) | payer OTHER, BC, SELFPAY ==
[2024-10-21 13:06] LABS: Alanine Aminotransferase 70 U/L (6-35); Albumin Level 4.4 g/dL (3.5-5.1); Alkaline Phosphatase 69 U/L (38-126); Anion Gap 8 mmol/L (4-12); Aspartate Amino Transferase 45 U/L (14-36); Bilirubin,Total 0.5 mg/dL (0.2-1.3); Blood Urea Nitrogen 11 mg/dL (7-17); Calcium 9.2 mg/dL (8.4-10.2); Carbon Dioxide 27 mmol/L (22-30); Chloride 104 mmol/L (98-107); Estimated Glomerular Filt Rate > 60; Glucose 88 mg/dL (65-110); Potassium 4.2 mmol/L (3.4-5.0); Sodium 139 mmol/L (137-145); Total Protein 8.0 g/dL (6.3-8.2)
== END 2024-10-21 12:29 | disposition home or self-care (01) ==
PROVIDERS: Visit Provider Obstetrics & Gynecology
DX: Z86.32 Personal history of gestational diabetes (principal)
CPT/HCPCS: 36415; 80053

== ENCOUNTER 2024-11-05 09:37 | Outpatient (CLI) | payer OTHER, BC, SELFPAY ==
--- OUTSIDE RECORDS SUMMARY | 2024-11-05 09:56 | XMS_ITS ---
Author Organization Unknown ENCOUNTERS Encounter Performer Location Date Diagnosis Diagnosis Status Outpatient [facility] [address] [place] [address] [id number] Outpatient [facility] [address] [place] [address] [id number] [facility] Inpatient [facility] [address] [place] [address] [id number] [facility] Outpatient [facility] [address] [place] [address] [id number] [facility] Outpatient [facility] [address] [place] [address] [id number] [facility] Outpatient [facility] [address] [place] [address] [id number] [facility] Inpatient [facility] [address] [place] [address] [id number] [facility] Observation [facility] [address] [place] [address] [id number] [facility] Outpatient [facility] [address] [place] [address] [id number] [facility] *Note: Encounters from your own facility or health system may be excluded. Allergies, Adverse Reactions, Alerts Allergen Type Severity Identification Date Medications Name Date Quantity Days Supplied [facility] Number
[2024-11-05 10:25] LABS: Alanine Aminotransferase 41 U/L (6-35); Albumin Level 4.4 g/dL (3.5-5.1); Alkaline Phosphatase 67 U/L (38-126); Anion Gap 8 mmol/L (4-12); Aspartate Amino Transferase 33 U/L (14-36); Bilirubin,Total 0.3 mg/dL (0.2-1.3); Blood Urea Nitrogen 13 mg/dL (7-17); Calcium 9.4 mg/dL (8.4-10.2); Carbon Dioxide 28 mmol/L (22-30); Chloride 103 mmol/L (98-107); Estimated Glomerular Filt Rate > 60; Glucose 86 mg/dL (65-110); Potassium 4.1 mmol/L (3.4-5.0); Sodium 139 mmol/L (137-145); Total Protein 7.8 g/dL (6.3-8.2)
== END 2024-11-05 09:38 | disposition home or self-care (01) ==
LOC: ANHLAB 09:38
PROVIDERS: Visit Provider Obstetrics & Gynecology
DX: Z86.32 Personal history of gestational diabetes (principal)
CPT/HCPCS: 36415; 80053